=== PATIENT | male | born 1970 | race Caucasian/White ===

== ENCOUNTER 2019-10-01 12:34 | Emergency (ER) | payer SELFPAY ==
[2019-10-01 12:42] VITALS: BP 137/82; PULSE 106; RESP 18; TEMP 37.1; O2SAT 97; BMI 25.1
--- NOTE | 2019-10-01 13:01 | ECG_ITS ---
Measurements Intervals [place] Rate: 85 P: 35 CT: 140 QRS: -47 QRSD: 100 T: 45 QT: 346 QTc: 414 SINUS RHYTHM POSSIBLE RIGHT VENTRICULAR CONDUCTION DELAY [RSR (QR) IN V1/V2] LEFT ANTERIOR FASCICULAR BLOCK [QRS AXIS <= -45, QR IN I, RS IN II] No previous ECG available for comparison Electronically Signed On 10-01-2019 18:56:00 CDT by Daija Vázquez M.D. [email or web address]
--- NOTE | 2019-10-01 14:45 | CT_ITS ---
WS: [id number] CT HEAD NONCONTRAST HISTORY: diplopia, EOM palsy TECHNIQUE: Contiguous axial imaging performed through the brain in 2.5 mm imaging. Bone and soft tiss ue windows. Sagittal and coronal reformats reviewed. All CT scans at [facility] use at le ast one of these dose optimization techniques: automated exposure control; mA and/or kV adjustment pe r patient size (includes targeted exams where dose is matched to clinical indication); or iterative r econstruction. DLP: 872.08 mGy.cm COMPARISON: None available. No acute intracranial hemorrhage, midline shift or mass effect. No atrophy or prior infarcts or herniation. Ventricles: Normal size with no hydrocephalus. Paranasal sinuses: As visualized are clear. Mastoid air cells: Well pneumatized. Calvarium and scalp: Skull is intact with no soft tissue edema or swelling. CT/CT head wo con* [id number] IMPRESSION: Negative head CT.
[2019-10-01 14:51] LABS: Basophils % 0.5 %; Eosinophils # 0.1 10^3/uL (0.0-0.8); Eosinophils % 0.9 %; Hematocrit 50.1 % (42.0-52.0); Hemoglobin 16.8 g/dL (11.7-16.6); Lymphocytes # 2.1 10^3/uL (0.8-4.8); Lymphocytes % 23.8 %; Mean Corpuscular HGB Conc 33.5 g/dL (30.0-36.0); Mean Corpuscular Hemoglobin 31.1 pg (28.0-34.0); Mean Corpuscular Volume 92.6 fL (80-94); Monocytes # 0.5 10^3/uL (0.2-0.9); Monocytes % 5.4 %; Neutrophils % 69.3 %; Nucleated Red Blood Cells % 0 %; Platelet Count 215 10^3/cmm (130-400); Red Blood Count 5.41 10^6/uL (4.1-5.3); Red Cell Distribution Width 11.1 % (12.1-15.1); White Blood Count 8.7 10^3/uL (4.0-10.0)
[2019-10-01 15:15] LABS: Troponin(5th) Baseline 6 ng/mL (0-15)
[2019-10-01 15:22] LABS: Alanine Aminotransferase 13 U/L (0-41); Albumin Level 4.6 g/dL (3.5-5.2); Alkaline Phosphatase 73 IU/L (40-130); Anion Gap 15.1 (5-19); Aspartate Amino Transferase 12 U/L (0-40); Blood Urea Nitrogen 4 mg/dL (6-20); Carbon Dioxide 26 mmol/L (22-29); Chloride 101 mmol/L (98-107); Glomerular Filtration Rate 102.7 mL/min (90-130); Glucose 87 mg/dL (65-115); Osmolality Calculated 281 mOsm/kg (285-295); Potassium 4.1 mmol/L (3.5-5.1); Sodium 138 mmol/L (136-145); Thyroid Stimulating Hormone 0.48 uIU/mL (0.27-4.20); Total Bilirubin 0.3 mg/dL (0.15-1.2); Total Protein 7.6 g/dL (6.6-8.7)
[2019-10-01 15:37] LABS: C Reactive Protein 1.1 mg/L (0.0-4.9)
[2019-10-01 15:51] LABS: Erythrocyte Sedimentation Rate 3 mm/hr (0-10)
--- NOTE | 2019-10-01 16:02 | W.ED.GENADLT ---
HPI - General Adult General: Chief complaint: General Medical Stated complaint: MULTIPLE complaints Time Seen by Provider: 10/01/19 14:33 History of Present Illness: HPI narrative: This patient is a 49-year-old gentleman presenting with double vision and dizziness. He reports this is been going on for several months and has been getting worse. He has trouble reading because he sees double. He has trouble with his balance and depth perception. He denies eye pain or blurry vision. He says it is difficult for him to focus on anything. He admits to history of meth use in the past but has not used since May. He did use IV up until that time. He occasionally uses marijuana but has not used any about about a month. He denies any other injuries or past medical history. Associated symptoms: Deny chest pain, dyspnea, headache(s), malaise, nausea, rash or vomiting Review of Systems General: Reports: 10 or more systems reviewed and unremarkable except in HPI and below Const: Denies: fever(s), chills, fatigue or malaise Eyes: Denies: change in vision ENMT: Denies: odynophagia Card: Denies: chest pain or swelling of feet/ankles Resp: Denies: dyspnea, productive cough or non-productive cough GI: Denies: abdominal pain, nausea or vomiting : Denies: flank pain Musc: Denies: neck pain or back pain Skin/Breast: Denies: rash Neuro: Denies: headache(s), numbness in extremities or weakness in extremities [place]/Lymph: Denies: easy bruising or easy bleeding PFS ED PFSH: Social History Smoking and tobacco status: current every day smoker Physical Exam Const: COMMON NORMALS: no acute distress, patient oriented x3, no limitations and alert GENERAL APPEARANCE: cooperative and comfortable HENMT: HEAD & SCALP: normal to inspection FACE & SINUS: normal facial exam Eye: COMMON NORMALS: Equal, round and reactive pupils present GENERAL EYE: appearance normal, both eyes and all related structures ALIGNMENT: Yes esotropia Esotropic laterality: right PUPIL: Yes Equal, round and reactive pupils present Neck/C-Spine: COMMON NORMALS: supple, no meningeal signs and no JVD Chest: COMMONS NORMALS: normal inspection of the chest Resp: COMMON NORMALS: normal respiratory effort, No use of accessory muscles and clear to auscultation bilaterally AUSCULTATION: clear to auscultation bilaterally Cardio: COMMON NORMALS: no JVD, regular rate, regular rhythm and No murmurs present (Cardio) RATE: regular rate RHYTHM: regular rhythm GI: COMMON NORMALS: Normal to inspection, nondistended, normoactive bowel sounds present, Soft to palpation and non-tender INSPECTION: Yes normal to inspection AUSCULTATION: Yes normoactive bowel sounds PALPATION: Yes Soft to palpation Back/Pelvis: COMMON NORMALS: thoracic and lumbar spine normal to inspection Extremity: COMMON NORMALS: normal to inspection Neuro: COMMON NORMALS: patient oriented x3, moves all extremities, no focal motor deficits and no sensory deficits noted SENSORIUM/ORIENTATION: Yes alert MENINGEAL SIGNS: Yes no meningeal signs CRANIAL NERVES: Yes CN normal except as noted and Yes CN (abducens) CN findings: unable to laterally deviate right eye Psych: COMMON NORMALS: mental status grossly normal, cooperative and normal affect Skin: COMMON NORMALS: no rashes or lesions noted and turgor normal GENERAL SKIN EXAM: no rashes or lesions noted and turgor normal Course ED course: This patient has a 6th cranial nerve palsy. 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 I did get labs and a CT based on his history of IV drug use and dizziness. CT was negative and there are no other neurologic findings to suggest anything else going on. He was given referral to ophthalmology for follow-up. Vital Signs: Vital signs: Vital Signs Temperature 98.8 F 10/01/19 12:42 Pulse Rate 106 H 10/01/19 12:42 Respiratory Rate 18 10/01/19 12:42 Blood Pressure 137/82 10/01/19 12:42 Pulse Oximetry 97 10/01/19 12:42 [facility] - General Adult Lab Data: Labs: Lab Results 10/01/19 10/01/19 10/01/19 Range/Units 14:46 14:46 14:46 WBC 8.7 (4.0-10.0) 10^3/ uL RBC 5.41 H (4.1-5.3) 10^6/u L Hgb 16.8 H (11.7-16.6) g/dL Hct 50.1 (42.0-52.0) % MCV 92.6 (80-94) fL MCH 31.1 (28.0-34.0) pg MCHC 33.5 (30.0-36.0) g/dL RDW 11.1 L (12.1-15.1) % Plt Count 215 (130-400) 10^3/c mm MPV 9.0 (7.4-10.4) fL Neut % (Auto) 69.3 % Lymph % (Auto) 23.8 % [place] % (Auto) 5.4 % Eos % (Auto) 0.9 % Baso % (Auto) 0.5 % Neut # (Auto) 6.0 (1.8-7.7) 10^3/u L Lymph # (Auto) 2.1 (0.8-4.8) 10^3/u L [place] # (Auto) 0.5 (0.2-0.9) 10^3/u L Eos # (Auto) 0.1 (0.0-0.8) 10^3/u L Baso # (Auto) 0.0 (0.0-0.1) 10^3/u L Nucleated RBC % (a uto) 0 % Nucleated RBCs # 0.0 /100WBC ESR (0-10) mm/hr Sodium 138 (136-145) mmol/L Potassium 4.1 (3.5-5.1) mmol/L Chloride 101 (98-107) mmol/L Carbon Dioxide 26 (22-29) mmol/L Anion Gap 15.1 (5-19) BUN 4 L (6-20) mg/dL Creatinine 0.8 (0.7-1.2) mg/dL GFR Calculation 102.7 (90-130) mL/min Glucose 87 (65-115) mg/dL Calculated Osmolal ity 281 L (285-295) mOsm/k g Calcium 10.0 (8.5-10.5) mg/dL Total Bilirubin 0.3 (0.15-1.2) mg/dL AST 12 (0-40) U/L ALT 13 (0-41) U/L Alkaline Phosphata se 73 (40-130) IU/L Troponin T Baselin e 6 (0-15) ng/mL C-Reactive Protein (0.0-4.9) mg/L Total Protein 7.6 (6.6-8.7) g/dL Albumin 4.6 (3.5-5.2) g/dL Globulin 3.0 (1.3-4.6) g/dL TSH 0.48 (0.27-4.20) uIU/ mL 10/01/19 10/01/19 Range/Units 14:46 14:46 WBC (4.0-10.0) 10^3/ uL RBC (4.1-5.3) 10^6/u L Hgb (11.7-16.6) g/dL Hct (42.0-52.0) % MCV (80-94) fL MCH (28.0-34.0) pg MCHC (30.0-36.0) g/dL RDW (12.1-15.1) % Plt Count (130-400) 10^3/c mm MPV (7.4-10.4) fL Neut % (Auto) % Lymph % (Auto) % [place] % (Auto) % Eos % (Auto) % Baso % (Auto) % Neut # (Auto) (1.8-7.7) 10^3/u L Lymph # (Auto) (0.8-4.8) 10^3/u L [place] # (Auto) (0.2-0.9) 10^3/u L Eos # (Auto) (0.0-0.8) 10^3/u L Baso # (Auto) (0.0-0.1) 10^3/u L Nucleated RBC % (a uto) % Nucleated RBCs # /100WBC ESR 3 (0-10) mm/hr Sodium (136-145) mmol/L Potassium (3.5-5.1) mmol/L Chloride (98-107) mmol/L Carbon Dioxide (22-29) mmol/L Anion Gap (5-19) BUN (6-20) mg/dL Creatinine (0.7-1.2) mg/dL GFR Calculation (90-130) mL/min Glucose (65-115) mg/dL Calculated Osmolal ity (285-295) mOsm/k g Calcium (8.5-10.5) mg/dL Total Bilirubin (0.15-1.2) mg/dL AST (0-40) U/L ALT (0-41) U/L Alkaline Phosphata se (40-130) IU/L Troponin T Baselin e (0-15) ng/mL C-Reactive Protein 1.1 (0.0-4.9) mg/L Total Protein (6.6-8.7) g/dL Albumin (3.5-5.2) g/dL Globulin (1.3-4.6) g/dL TSH (0.27-4.20) uIU/ mL Discharge Plan Discharge Patient Disposition: Home, Self-Care Clinical Impression: 6th nerve palsy Qualifiers: Laterality: right Qualified Code(s): H49.21 - Sixth [abducent] nerve palsy, right eye Condition: Stable Prescriptions: No Action No Known Home Medications RF: 0 Discharge Orders: Discharge Order (Routine); Ordered 10/01/19 Ordered By: Abigail Hernández Referrals: Jerome Skaggs MD [Physician] - 1 week Discharge Diet: Usual diet Discharge Activity: Resume usual activity Patient Instructions: Diplopia (ED) Activity Restrictions/Additional Instructions: Use caution driving or in activities were depth perception is necessary. Follow up with the building performance specialist for further evaluation and treatment. 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
[2019-10-01 17:01] VITALS: BP 152/68; PULSE 87; RESP 18; O2SAT 96
[2019-10-01 17:02] LABS: Troponin 5 2HR Delta 0 ABS# (0-10)
--- NOTE | 2019-10-01 19:01 | ECG_ITS ---
Measurements Intervals [place] Rate: 85 P: 35 [place]: 140 QRS: -47 QRSD: 100 T: 45 QT: 346 QTc: 414 SINUS RHYTHM POSSIBLE RIGHT VENTRICULAR CONDUCTION DELAY [RSR (QR) IN V1/V2] LEFT ANTERIOR FASCICULAR BLOCK [QRS AXIS <= -45, QR IN I, RS IN II] No previous ECG available for comparison [email or web address]
== END 2019-10-01 17:05 | disposition home or self-care (01) ==
PROVIDERS: Emergency Medicine; Emergency Provider Emergency Medicine
DX: H49.21 Sixth [abducent] nerve palsy, right eye (principal); F17.210 Nicotine dependence, cigarettes, uncomplicated
CPT/HCPCS: 12345; 36415; 70450; 80053; 84443; 84484; 85025; 85651; 86140; 93005; 99281; 99283

== ENCOUNTER 2021-11-30 10:48 | Outpatient (CLI) | payer OTHER, SELFPAY ==
--- NOTE | 2021-11-30 11:07 | XR_ITS ---
WS: [id number] Exam: XR chest 2V* [id number] Date/Time of Exam: 11/30/2021 11:13 AM Reason For Exam: SHORTNESS OF BREATH/TOBACCO USE/ABN WEIGHT LOSS Findings: The lungs are clear and fully expanded. Costophrenic angles are sharp. No infiltrates. Bronchovascula r relief appears normal. Cardiac silhouette is unremarkable. Bony elements are intact. XR/XR chest 2V* [id number] IMPRESSION: Unremarkable chest radiograph.
== END 2021-11-30 10:49 | disposition home or self-care (01) ==
PROVIDERS: PCP Nurse Practitioner Family; Visit Provider Nurse Practitioner Family
DX: R06.02 Shortness of breath (principal); Z72.0 Tobacco use; R63.4 Abnormal weight loss
CPT/HCPCS: 71046

== ENCOUNTER 2022-03-30 18:31 | Emergency (ER) | payer OTHER, SELFPAY ==
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
[2022-03-30 18:59] VITALS: BP 120/71; PULSE 69; RESP 16; TEMP 36.8; O2SAT 96; BMI 22.3
--- NOTE | 2022-03-30 19:08 | W.ED.EXTPRO ---
HPI - Extremity Problem General: Chief complaint: Extremity Injury, Upper Stated complaint: Left finger injury Time Seen by Provider: 03/30/22 19:05 Source: patient Mode of arrival: ambulatory Limitations: no limitations History of Present Illness: 52-year-old male states he fell this morning he landed on his left arm states he been having some pain since then he states the pain is sharp in nature rates it a 5 out of 10 he denies any other injuries states is worse with palpation and movement improved with rest. Associated symptoms: Deny chest pain, fever(s) or rash Review of Systems Const: Denies: fever(s), chills, body aches or change in appetite Eyes: Denies: blurry vision or eye discomfort ENMT: Denies: throat pain or dental pain Card: Denies: chest pain Resp: Denies: dyspnea GI: Denies: abdominal pain, nausea, vomiting or diarrhea : Denies: dysuria Musc: Reports: extremity pain Skin/Breast: Denies: rash Neuro: Denies: headache(s) Psych: Denies: depression [place]/Lymph: Denies: easy bruising All/Imm: Denies: urticaria PFSH ED PFSH: Medical History No pertinent past medical history Surgical History No pertinent past surgical history Social History Smoking and tobacco status: current every day smoker Physical Exam Const: COMMON NORMALS: no acute distress and average body habitus HENMT: COMMON NORMALS: normocephalic and atraumatic HEAD & SCALP: normocephalic and atraumatic Eye: COMMON NORMALS: conjunctivae normal CONJUNCTIVA: Yes conjunctivae normal Neck/C-Spine: COMMON NORMALS: full ROM and supple Chest: COMMONS NORMALS: normal inspection of the chest Resp: COMMON NORMALS: normal respiratory effort Cardio: COMMON NORMALS: regular rate and regular rhythm RATE: regular rate RHYTHM: regular rhythm GI: INSPECTION: Yes normal to inspection Extremity: NARRATIVE EXTREMITY EXAM: Slight tenderness to left thumb is full strength no signs of ligament damage Neuro: LIZY COMA SCALE: document GCS findings Course Vital Signs: Vital signs: Vital Signs Temperature 98.3 F 03/30/22 18:59 Pulse Rate 69 03/30/22 18:59 Respiratory Rate 16 03/30/22 18:59 Blood Pressure 120/71 03/30/22 18:59 Pulse Oximetry 96 03/30/22 18:59 Oxygen Delivery Me thod 03/30/22 18:59 MDM - Extremity (Nontraumatic) Medical Decision Making Patient presents with a thumb sprain from a fall x-ray is normal he is stable for discharge he is to follow-up with PCP and return if worsening. Discharge Plan Discharge Patient Disposition: Home Clinical Impression: Left thumb sprain Condition: Stable Prescriptions: No Action ketoconazole 2 % cream 1 applic topical BID Qty: 30 6RF Rx Instructions: Apply to red-scaly areas on face 1-2 times daily triamcinolone acetonide 0.1 % ointment 1 applic topical BID Qty: 80 0RF Rx Instructions: apply to affected area no more than 2 weeks per month. not for face Discharge Orders: Discharge ED (Routine); Ordered 03/30/22 Ordered By: Chely Toure Referrals: Yuridia Epstein NP [Primary Care Provider] - 1-3 days Discharge Diet: Advance as tolerated Discharge Activity: Resume usual activity Patient Instructions: Finger Sprain (ED) Coding Level of Care Code ED Weekend Anchor for Julio Fwd Exam Comprehensive
[2022-03-30] MEDS: naproxen 500 mg Tablet PO (19:12)
[2022-03-30 19:48] VITALS: PULSE 78; RESP 16; O2SAT 99
== END 2022-03-30 19:49 | disposition home or self-care (01) ==
PROVIDERS: Emergency Provider Emergency Medicine; PCP Nurse Practitioner Family
DX: S63.602A Unspecified sprain of left thumb, initial encounter (principal); F17.210 Nicotine dependence, cigarettes, uncomplicated; W19.XXXA Unspecified fall, initial encounter
CPT/HCPCS: 73130; 99283

== ENCOUNTER 2022-08-12 14:55 | Outpatient (CLI) | payer BC, SELFPAY ==
--- NOTE | 2022-08-12 15:12 | CT_ITS ---
WS: [id number] CT CHEST CT-HIGH RESOLUTION, NONCONTRAST. HISTORY: Interstitial lung disease. Cough and short of breath. Technique: High-resolution chest CT is performed in inspiration, expiration, supine and prone jennyfer nedra. All CT scans at [facility] use at least one of these dose optimization techniques: automated exposure control; mA and/or kV adjustment per patient size (includes targeted exams where dose is mat ched to clinical indication); or iterative reconstruction. DLP: 1291.43 mGy.cm COMPARISON: Chest radiograph 11/30/2021 Findings: Lungs are clear and well aerated. No pneumonia, mass or nodule. No honeycombing or bronchie ctasis. No endobronchial lesions. No pericardial or pleural effusions. There is no air trapping. Lungs are well aerated. No adenopathy identified. Normal size aortic and pulmonary artery. Normal size heart. Bilateral nonobstructing renal calculi. No adrenal mass. CT/CT chest wo con [id number] Impression: 1. No pneumonia. 2. No interstitial lung disease. No honeycombing or bronchiectasis.
== END 2022-08-12 14:56 | disposition home or self-care (01) ==
PROVIDERS: PCP Nurse Practitioner Family; Visit Provider Nurse Practitioner Family
DX: R05.9 Cough, unspecified (principal); R06.02 Shortness of breath; R63.4 Abnormal weight loss; F17.200 Nicotine dependence, unspecified, uncomplicated
CPT/HCPCS: 71250; Q9967

== ENCOUNTER 2022-09-19 11:04 | Outpatient (CLI) | payer BC, SELFPAY | END 2022-09-19 11:05 | disposition home or self-care (01) | PROVIDERS: PCP Nurse Practitioner Family; Visit Provider Nurse Practitioner Family | DX: R06.02 Shortness of breath (principal); R05.9 Cough, unspecified; F17.210 Nicotine dependence, cigarettes, uncomplicated | CPT/HCPCS: 94010; 94726; 94729 ==